=== PATIENT | female | born 2000 | race Caucasian/White ===

== ENCOUNTER 2018-10-14 14:19 | Emergency (ER) | payer OTHER ==
[~2018-10-14] VITALS: Ht 165.1 cm; Wt 45.4 kg
[~2018-10-14 14:19] MED LIST: IBUPROFEN600 MG ORAL; KEFLEX500 MG ORAL; NKM
[2018-10-14 14:28] VITALS: BP 98/64
[2018-10-14] MEDS ORDERED: XANAX2 MG ORAL (14:31)
--- NOTE | 2018-10-14 14:40 | NUR ---
ED Nurse Note: Patient presents to ER due to feeling anxious and unable to sleep for the past few days. Patient does not want to hurt herself or others at this time. Patient ran out of Xanax. Patient is sitting in chair comfortably. Provided blanket.
--- NOTE | 2018-10-14 15:07 | NUR ---
ED Nurse Note:po juice given to pt friend at bs.
[2018-10-14] MEDS ORDERED: XANAX1 MG ORAL (15:10)
[2018-10-14] MEDS ORDERED: PROAIR HFA8.5 GM INH (15:10)
--- NOTE | 2018-10-14 15:22 | NUR ---
ER DISCHARGE NOTE: Patient is cleared to be discharged per ERMD, pt is aox4, on room air, with stable vital signs. pt was given dc and prescription instructions, pt was able to verbalize understanding, pt id band removed without complications. pt is able to ambulate with steady gait. pt took all belongings.
[2018-10-14 15:23] VITALS: BP 98/64
--- NOTE | 2018-10-14 17:48 | Emergency Room Report ---
History of Present Illness General Chief Complaint: Medication Refill Source: Patient Present Illness HPI The patient is a 17-year-old female presenting for refill of medication. She states that she uses Xanax for anxiety disorder for which she is seeing a psychiatrist. She states that she has been unable to see her psychiatrist for the past week. She has been feeling increasingly anxious and is unable to sleep. She also wants refill for albuterol for which she takes for asthma. She denies other symptoms including nausea, vomiting, headache, blurred vision, tremors, chest pain, shortness of breath, cough, wheezing Allergies: Coded Allergies: No Known Allergies (Unverified , 06/16/14) Patient History Past Medical History: see triage record Pertinent Family History: none Last Menstrual Period: 09/30/2018 Reviewed Nursing Documentation: PMH: Agreed; PSxH: Agreed Nursing Documentation-PMH Past Medical History: No History, Except For Hx Cardiac Problems: No Hx Hypertension: No Hx Pacemaker: No Hx Asthma: Yes Hx Diabetes: No Hx Cancer: No Hx Gastrointestinal Problems: No Hx Dialysis: No History Of Psychiatric Problem: Yes - Anxiety, insomia Hx Neurological Problems: No Hx Cerebrovascular Accident: No Hx Seizures: No Review of Systems All Other Systems: negative except mentioned in HPI Physical Exam Vital Signs Date Time Temp Pulse Resp B/P (MAP) Pulse Ox O2 Delivery O2 Flow Rate FiO2 10/14/18 14:28 98.2 92 18 98/64 (75) 99 Room Air Sp02 EP Interpretation: reviewed, normal General Appearance: no apparent distress, alert, GCS 15, non-toxic Head: normocephalic, atraumatic Eyes: bilateral eye normal inspection, bilateral eye PERRL Respiratory: chest non-tender, lungs clear, normal breath sounds, speaking full sentences Cardiovascular #1: regular rate, rhythm, no edema Musculoskeletal: back normal, gait/station normal, normal range of motion, non- tender, calf tenderness Neurologic: alert, oriented x3, responsive, motor strength/tone normal, sensory intact, speech normal Psychiatric: judgement/insight normal, memory normal, mood/affect normal, no suicidal/homicidal ideation Skin: no rash Lymphatic: normal inspection, no adenopathy Medical Decision Making PA Attestation Dr. Mackey is my supervising physician. Patient management was discussed with my supervising physician Diagnostic Impression: Primary Impression: Anxiety Additional Impression: Encounter for medication refill ER Course The patient is a 17-year-old female presenting for refill of medication Differential diagnoses considered but not limited to anxiety disorder, medication abuse, benzodiazepine withdrawal, among others PE: Vitals stable. NAD PERRL Lungs cta bilat. RRR No tremor The patient is given a limited refill of medication and told she needs to follow -up with primary doctor and psychiatry as soon as possible. She is given information regarding [facility] mental health urgent care if she is unable to follow-up with her own psychiatrist soon. ER precautions given Last Vital Signs Date Time Temp Pulse Resp B/P (MAP) Pulse Ox O2 Delivery O2 Flow Rate FiO2 10/14/18 15:23 98.2 72 18 98/64 99 Room Air Status: improved Disposition: HOME, SELF-CARE Condition: Improved Scripts Alprazolam* (XANAX*) 1 Mg Tablet 1 TAB ORAL TID PRN for PRN Agitation/Anxiety, #10 TAB 0 Refills Prov: PADDY ACEVEDO 10/14/18 Albuterol Sulfate* (PROAIR HFA*) 8.5 Gm Hfa.aer.ad 2 PUFFS INH Q6H, #8.5 GM 0 Refills Prov: PADDY ACEVEDO 10/14/18 Referrals: [facility]ERR[facility]P) [facility] Patient Instructions: Medicine Refill at the Emergency Department, Panic Attacks Additional Instructions: I discussed my findings with the patient. All questions and concerns have been answered. Treatment and medication compliance have been addressed. I advised the patient that they need to follow up with Primary doctor within 3 days. Return to ED if symptoms worsen, new symptoms arise, or if needed for any reason. Patient verbalized understanding of discharge instructions. Please follow up with psychiatry as soon as possible. [facility] urgent care info given PADDY ACEVEDO Oct 14, 2018 17:48
== END 2018-10-14 15:25 | disposition home or self-care (01) ==
LOC: EMR 15:05
DX: F41.9 Anxiety disorder, unspecified (principal); Z76.0 Encounter for issue of repeat prescription
CPT/HCPCS: 99282

== ENCOUNTER 2019-06-02 19:49 | Emergency (ER) | payer MEDICAID, OTHER ==
[~2019-06-02] VITALS: Ht 162.6 cm; Wt 63.5 kg
[~2019-06-02 19:49] MED LIST changes: +PROAIR HFA8.5 GM INH; +XANAX1 MG ORAL; +XANAX2 MG ORAL
[2019-06-02 19:55] VITALS: BP 130/85
--- NOTE | 2019-06-02 19:55 | NUR ---
ED Nurse Note: Patient brought in by [employer] d/t disturbing the peace reported by [employer]. Patient alert and oriented to person and placed and ambulatory with steady gait. Patient restless. Patient stable upon assessment.
--- NOTE | 2019-06-02 20:07 | NUR ---
ELOPEMENT: Patient restless and needed redirection several times, patient was given food and drinks, declined care and eloped through waiting area. Medications and IV fluids were not able to be given. Patient alert and oriented to person and place upon assessment prior to elopement. Patient stable upon assessment prior to elopement.
--- NOTE | 2019-06-02 20:14 | Emergency Room Report ---
History of Present Illness General Chief Complaint: General Complaint Source: Patient Present Illness HPI Patient brought in by EMS. They were summoned by [employer]. [employer] are not arresting the patient or placing her on a hold. Apparently the patient had taken 1 Vicodin. 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 There is a possibility of other drug ingestions also. The patient denies fevers or chills. She is complaining about pain in her left heel from a prior accident. She denies any skin changes there. She denies suicidal homicidal ideation. She says that she is mainly hungry. Patient refuses to answer other questions with review of systems. History of asthma and anxiety. COVID-19 risk:Travel to affect: No Allergies: Coded Allergies: No Known Allergies (Unverified , 06/16/14) Patient History Limited by: medical condition Past Medical History: see triage record, old chart reviewed Social History: Reports: smoking, alcohol use, drug use Social History Narrative Lives in an apartment Reviewed Nursing Documentation: PMH: Agreed; PSxH: Agreed Nursing Documentation-PMH Hx Cardiac Problems: No Hx Hypertension: No Hx Pacemaker: No Hx Asthma: Yes Hx Diabetes: No Hx Cancer: No Hx Gastrointestinal Problems: No Hx Dialysis: No Hx Neurological Problems: No Hx Cerebrovascular Accident: No Hx Seizures: No Review of Systems All Other Systems: limited Physical Exam Vital Signs Date Time Temp Pulse Resp B/P (MAP) Pulse Ox O2 Delivery O2 Flow Rate FiO2 06/02/19 19:53 98.1 84 16 132/84 (100) 98 Room Air Sp02 EP Interpretation: reviewed, normal General Appearance: GCS 15, non-toxic, thin, other - Anxious Head: normocephalic Eyes: bilateral eye PERRL, bilateral eye Scleral Injection ENT: moist mucus membranes - Slightly dry Neck: full range of motion, supple Respiratory: lungs clear, normal breath sounds Cardiovascular #1: tachycardia Cardiovascular #2: 2+ radial (R) Gastrointestinal: normal inspection, non-distended Genitourinary: no CVA tenderness Musculoskeletal: back normal, normal range of motion, gait/station normal, tender - Left heel without deformity Neurologic: alert, motor strength/tone normal, oriented x3, sensory intact, speech normal Psychiatric: no suicidal/homicidal ideation, anxious - Pressured Skin: warm/dry, other - Tattoos Medical Decision Making Diagnostic Impression: Primary Impression: Behavioral change Additional Impression: Narcotic drug use ER Course Patient presents via EMS with behavioral disorder as well as possible narcotic ingestion. Differential includes drug ingestion, electrolyte imbalance, exacerbation of underlying psychiatric illness, dehydration amongst others. I discussed with patient the need for work-up with IV blood work and treatment of pain. She is asking for morphine shot. I stated I would help her with her pain. She is anxious about not being in contact with her backpack. (This was not brought with her.) Patient initially agreed to have IV and blood work. She abruptly walked out of the emergency department at 2007. Status: unchanged Disposition: ELOPED Condition: Unknown Orion Caldwell MD Jun 02, 2019 20:13
[2019-06-02] MEDS ORDERED: DiphenhydrAMINE 50mg/ml Inj IVP ONE (20:15)
[2019-06-02] MEDS ORDERED: Metoclopramide 10mg/2ml Inj IVP ONE (20:15)
== END 2019-06-02 20:20 | disposition left against medical advice (07) ==
LOC: EDBD 19:49 → EMR 20:20
DX: F91.9 Conduct disorder, unspecified (principal); F11.90 Opioid use, unspecified, uncomplicated; M25.572 Pain in left ankle and joints of left foot; F17.200 Nicotine dependence, unspecified, uncomplicated
CPT/HCPCS: 99281

== ENCOUNTER 2020-03-25 12:06 | Emergency (ER) | payer SELFPAY, MEDICAID ==
[~2020-03-25] VITALS: Ht 165.1 cm; Wt 59.0 kg
[2020-03-25] MEDS ORDERED: Bacitracin Oint UD TOPIC ONE (12:15)
--- NOTE | 2020-03-25 12:50 | NUR ---
ED Nurse Note:pt states she is . small abrasion noted to left shoulder area. pt is in [facility]. a/ox4 no ohter c/o. amb steady gait to obtain urine sample
--- NOTE | 2020-03-25 13:23 | Emergency Room Report ---
History of Present Illness General Chief Complaint: Medical Clearance Source: Patient Present Illness HPI 19-year-old female with no known past medical history brought in by [facility] for medical clearance. Patient denies any injury and reports that has a small abrasion on left elbow which has full range of motion. Also reports that she might be . Appears to be atraumatic. Denies any head injury or loss of consciousness. Patient appears to be under the influence of unknown substance. Allergies: Coded Allergies: No Known Allergies (Unverified , 06/16/14) COVID-19 Screening Contact w/high risk pt: No Experienced COVID-19 symptoms?: No COVID-19 Testing performed TOURIST GUIDE: No Patient History Past Medical History: see triage record Past Surgical History: none Pertinent Family History: none Reviewed Nursing Documentation: PMH: Agreed; PSxH: Agreed Nursing Documentation-PMH Past Medical History: No Stated History Hx Cardiac Problems: No Hx Hypertension: No Hx Pacemaker: No Hx Asthma: Yes Hx Diabetes: No Hx Cancer: No Hx Gastrointestinal Problems: No Hx Dialysis: No Hx Neurological Problems: No Hx Cerebrovascular Accident: No Hx Seizures: No Review of Systems All Other Systems: negative except mentioned in HPI Physical Exam Vital Signs Date Time Temp Pulse Resp B/P (MAP) Pulse Ox O2 Delivery O2 Flow Rate FiO2 03/25/20 12:49 98.1 78 18 110/70 (83) 98 Room Air Sp02 EP Interpretation: reviewed, normal General Appearance: no apparent distress, alert, GCS 15, non-toxic Head: normocephalic, atraumatic Eyes: bilateral eye normal inspection, bilateral eye PERRL ENT: hearing grossly normal, normal pharynx, no angioedema, normal voice Neck: full range of motion, supple/symm/no masses Respiratory: chest non-tender, lungs clear, normal breath sounds, speaking full sentences Cardiovascular #1: regular rate, rhythm, no edema Gastrointestinal: normal bowel sounds, non tender, soft, non-distended, no guarding, no rebound Rectal: deferred Genitourinary: no CVA tenderness Musculoskeletal: back normal Neurologic: alert, motor strength/tone normal, oriented x3, sensory intact, responsive, speech normal Psychiatric: judgement/insight normal, memory normal, mood/affect normal, no suicidal/homicidal ideation Skin: abrasion - Small abrasion both elbows Lymphatic: no adenopathy Medical Decision Making PA Attestation All diagnosis and treatment plans were discussed and reviewed by my supervising physician Dr. Weller Diagnostic Impression: Primary Impression: Medical clearance for incarceration Additional Impressions: Urine test negative Abrasion ER Course 19-year-old female with no known past medical history brought in by [facility] department for medical clearance. Patient denies any injury and reports that has a small abrasion on left elbow which has full range of motion. Also reports that she might be . Appears to be atraumatic. Denies any head injury or loss of consciousness. Patient appears to be under the influence of unknown substance. Ddx considered but are not limited to: Infected aberration, superficial abrasion noninfected, laceration, cellulitis Vital signs: are WNL, pt. is afebrile H&PE are most consistent with: Urine negative, abrasion, medical clearance for incarceration ORders: Urine test ED INTERVENTIONS: Wound clean and dressed Patient was discharged to law enforcement cleared. At this time no imaging needed patient has range of motion of all extremities. Last Vital Signs Date Time Temp Pulse Resp B/P (MAP) Pulse Ox O2 Delivery O2 Flow Rate FiO2 03/25/20 12:49 98.1 78 18 110/70 (83) 98 Room Air Disposition: LAW ENFORCEMENT IN CUST Condition: Stable Jina Ruiz Mar 25, 2020 13:23
--- NOTE | 2020-03-25 13:30 | NUR ---
ED Nurse Note: Pt cleared by health care Provider for discharge. DC instructions/medical clearance was given and explained to pt and verbalized understanding of teachings. All medical devices such as ID band removed. Pt is AAO x4, ambulatory and left with all personal belongings. angie fleming aware of aci
[2020-03-25 13:31] VITALS: BP 110/70
[2020-03-25 13:35] VITALS: BP 110/70
== END 2020-03-25 13:35 ==
LOC: EMR 13:35
DX: Z02.89 Encounter for other administrative examinations (principal); S50.312A Abrasion of left elbow, initial encounter; J45.909 Unspecified asthma, uncomplicated; X58.XXXA Exposure to other specified factors, initial encounter; Y93.9 Activity, unspecified; Y92.9 Unspecified place or not applicable
CPT/HCPCS: 81025; 99283